=== PATIENT | female | born 1985 | race Caucasian/White ===

== ENCOUNTER 2022-05-04 06:00 | Inpatient (IN) | payer BC ==
[2022-05-04 07:18] VITALS: BMI 33.5
[2022-05-04] MEDS: Lactated Ringer's 1,000 ML IV SCH ×3 (07:31→15:49)
[2022-05-04] MEDS ORDERED: Ondansetron PF 4 MG/2 ML Vial IVP PRN ×3 (07:37→23:07)
[2022-05-04] MEDS ORDERED: NS w/ Oxytocin 30 units 500 ML IV SCH ×3 (07:37→23:07)
[2022-05-04] MEDS ORDERED: hydrALAZINE 20 MG/ML VIAL SLOW IVP PRN ×2 (07:37→23:07)
[2022-05-04] MEDS ORDERED: Promethazine HCl 25 MG/ML VIAL IM PRN ×2 (07:37→12:43)
[2022-05-04] MEDS ORDERED: Butorphanol Tartrate 1 MG/ML VIAL SLOW IVP PRN (07:37)
[2022-05-04] MEDS ORDERED: Lidocaine 1% (PF) 30 ML VIAL SC PRN (07:37)
[2022-05-04] MEDS ORDERED: HYDROcodone/Acetaminophen 5/325 mg Tablet PO PRN ×4 (07:37→23:07)
[2022-05-04] MEDS ORDERED: Ibuprofen 800 MG TAB PO PRN (07:37)
[2022-05-04] MEDS ORDERED: NS w/ Oxytocin 30 units 500 ML ONE (07:48)
[2022-05-04] MEDS ORDERED: Bupivacaine/Epinephrine 0.25% 30 ML VIAL ONE (08:00)
[2022-05-04 08:24] LABS: Hemoglobin 11.3 g/dL (12.0-15.5); Mean Corpuscular HGB CONC 34.6 g/dL (32.0-36.0); Mean Corpuscular Hemoglobin 31.3 pg (27.0-33.0); Mean Corpuscular Volume 90.6 fl (81.6-98.3); Mean Platelet Volume 10.8 fl (7.4-10.4); Platelet Count 247 10x3/uL (150-450); RBC Distribution Width 13.8 % (11.5-14.5); Red Blood Cell (RBC) Count 3.61 10x6/uL (3.90-5.03); White Blood Cell (WBC) Count 13.4 10x3/uL (3.5-10.5)
[2022-05-04 08:52] LABS: HBSAg Index 0.13 S/CO (0-0.99); Hep B Surf Ag Non-Reactive S/CO (NonReactive)
[2022-05-04 08:53] LABS: Syphilis Antibody Nonreactive (Nonreactive); Syphilis Antibody Index 0.03 S/CO (<1.00 Non-Reactive)
[2022-05-04 09:16] LABS: SARS-CoV-2 NAA Rapid Test Not Detected (NotDetected)
[2022-05-04] MEDS ORDERED: Fentanyl 2 mcg/Bup 0.1% Cadd 100 ML ONE (11:37)
[2022-05-04] MEDS ORDERED: ePHEDrine Sulfate 50 MG/10 ML VIAL SLOW IVP PRN (12:43)
[2022-05-04] MEDS ORDERED: diphenhydrAMINE 50 MG/ML VIAL IVP PRN (12:43)
[2022-05-04] MEDS ORDERED: Moisturizing Cream (Eucerin) 113 GM JAR TOP PRN (12:43)
[2022-05-04] MEDS ORDERED: Lactated Ringer's 500 ML IV PRN (12:43)
[2022-05-04] MEDS ORDERED: Acetaminophen 325 MG TAB PO PRN (12:43)
[2022-05-04] MEDS ORDERED: Naloxone HCl 0.4 mg/ml Vial IVP PRN ×2 (12:43)
[2022-05-04] MEDS ORDERED: Communication Order-Pharmacy FS SCH (12:45)
[2022-05-04] MEDS ORDERED: Fentanyl 2 mcg/Bupivacaine 0.1% Cassette 100 ML EPIDURAL SCH (12:45)
[2022-05-04] MEDS ORDERED: Bisacodyl 10 MG SUPP PR PRN (23:07)
[2022-05-04] MEDS ORDERED: diphenhydrAMINE 25 MG CAP PO PRN (23:07)
[2022-05-04] MEDS ORDERED: Preparation H Ointment 28 GM TUBE PR PRN (23:07)
[2022-05-04] MEDS ORDERED: Lanolin Ointment 7 GM TUBE TOP PRN (23:07)
[2022-05-04] MEDS ORDERED: Milk Of Magnesia 30 ML UDCUP PO PRN (23:07)
[2022-05-04] MEDS ORDERED: Benzocaine-Menthol 82.5 ML CAN TOP PRN (23:07)
[2022-05-04] MEDS ORDERED: Boostrix 0.5 ML (Tdap) VIAL (>/=7 yrs of age) IM ONE (23:07)
[2022-05-04] MEDS: Ibuprofen 800 MG TAB PO SCH (23:14)
[2022-05-04] MEDS ORDERED: Docusate 100 MG CAP PO SCH (23:15)
[2022-05-05] MEDS: Ferrous Sulfate 325 MG TAB PO SCH ×2 (08:16→16:03)
[2022-05-05] MEDS: Ibuprofen 800 MG TAB PO SCH ×3 (08:19→23:42)
[2022-05-05] MEDS: Prenatal Vitamin 1 TAB PO SCH (08:19)
[2022-05-05] MEDS: Docusate 100 MG CAP PO SCH ×2 (08:19→21:07)
[2022-05-06] MEDS: Docusate 100 MG CAP PO SCH (08:05)
[2022-05-06] MEDS: Prenatal Vitamin 1 TAB PO SCH (08:05)
[2022-05-06] MEDS: Ibuprofen 800 MG TAB PO SCH (08:05)
[2022-05-06] MEDS: Ferrous Sulfate 325 MG TAB PO SCH (08:06)
[2022-05-06 09:15] VITALS: BP 121/68; TEMP 97.9
== END 2022-05-06 11:20 | disposition home or self-care (01) | DRG 807 ==
LOC: CSHLD 06:26 → CSHPP 22:50
PROVIDERS: ADMIT Obstetrics & Gynecology; ATTEND Obstetrics & Gynecology
PROC: 10E0XZZ Delivery of Products of Conception, External Approach (ICD-10-PCS; principal; 2022-05-04)
PROC: 0KQM0ZZ Repair Perineum Muscle, Open Approach (ICD-10-PCS; 2022-05-04)
PROC: 3E0334Z Introduction of Serum, Toxoid and Vaccine into Peripheral Vein, Percutaneous Approach (ICD-10-PCS; 2022-05-05)
PROC: 10907ZC Drainage of Amniotic Fluid, Therapeutic from Products of Conception, Via Natural or Artificial Opening (ICD-10-PCS; 2022-05-05)
PROC: 3E033VJ Introduction of Other Hormone into Peripheral Vein, Percutaneous Approach (ICD-10-PCS; 2022-05-05)
DX: O99.52 Diseases of the respiratory system complicating childbirth (principal); Z37.0 Single live birth; O99.344 Other mental disorders complicating childbirth; O70.1 Second degree perineal laceration during delivery; O69.81X0 Labor and delivery complicated by cord around neck, without compression, not applicable or unspecified; Z3A.40 40 weeks gestation of pregnancy; Z20.822 Contact with and (suspected) exposure to COVID-19; O26.893 Other specified pregnancy related conditions, third trimester; Z67.11 Type A blood, Rh negative; J45.909 Unspecified asthma, uncomplicated; F41.9 Anxiety disorder, unspecified; O76 Abnormality in fetal heart rate and rhythm complicating labor and delivery
CPT/HCPCS: 36415; 51702; 85027; 85461; 86780; 86850; 86870; 86900; 86901; 87340; 90384; 96372; J1200; J2590; J7120; U0002

== ENCOUNTER 2024-03-20 06:07 | Inpatient (IN) | payer BC ==
[2024-03-20] MEDS ORDERED: Lidocaine 1% (PF) 30 ML VIAL SC PRN (07:12)
[2024-03-20] MEDS ORDERED: Promethazine HCl 25 MG/ML VIAL IM PRN ×2 (07:12→07:54)
[2024-03-20] MEDS ORDERED: fentaNYL 50 mcg/mL 1 mL Vial SLOW IVP PRN (07:12)
[2024-03-20] MEDS ORDERED: Oxytocin 30 units/NS 500 ML 500 ML IV SCH ×2 (07:12→16:51)
[2024-03-20] MEDS ORDERED: HYDROcodone/Acetaminophen 5/325 mg Tablet PO PRN ×3 (07:12→16:51)
[2024-03-20] MEDS ORDERED: Ibuprofen 800 MG TAB PO PRN (07:12)
[2024-03-20] MEDS ORDERED: Ondansetron PF 4 MG/2 ML Vial IVP PRN ×3 (07:12→16:51)
[2024-03-20] MEDS ORDERED: hydrALAZINE 20 MG/ML VIAL SLOW IVP PRN ×2 (07:12→16:51)
[2024-03-20 07:25] LABS: Hematocrit 33.7 % (34.9-44.5); Hemoglobin 11.3 g/dL (12.0-15.5); Mean Corpuscular HGB CONC 33.5 g/dL (32.0-36.0); Mean Corpuscular Hemoglobin 30.2 pg (27.0-33.0); Mean Corpuscular Volume 90.1 fL (81.6-98.3); Mean Platelet Volume 10.2 fL (7.4-10.4); Platelet Count 203 10x3/uL (150-450); RBC Distribution Width 13.2 % (11.5-14.5); Red Blood Cell (RBC) Count 3.74 10x6/uL (3.90-5.03); White Blood Cell (WBC) Count 11.4 10x3/uL (3.5-10.5)
[2024-03-20] MEDS: Lactated Ringer's 1,000 ML IV SCH (07:30)
[2024-03-20] MEDS: Oxytocin 30 units/NS 500 ML 500 ML IV SCH (07:30)
[2024-03-20 07:51] LABS: HBsAg Index 0.24 S/CO (0-0.99); Hep B Surf Ag - L&D Non-Reactive S/CO (NonReactive)
[2024-03-20 07:52] LABS: Syphilis Antibody Nonreactive (Nonreactive); Syphilis Antibody Index 0.04 S/CO (<1.00 Non-Reactive)
[2024-03-20] MEDS ORDERED: Lactated Ringer's 500 ML IV PRN (07:54)
[2024-03-20] MEDS ORDERED: ePHEDrine Sulfate 50 MG/10 ML VIAL SLOW IVP PRN (07:54)
[2024-03-20] MEDS ORDERED: Moisturizing Cream (Eucerin) 113 GM JAR TOP PRN (07:54)
[2024-03-20] MEDS ORDERED: Acetaminophen 325 MG TAB PO PRN (07:54)
[2024-03-20] MEDS ORDERED: Naloxone HCl 0.4 mg/ml Vial IVP PRN ×2 (07:54)
[2024-03-20] MEDS ORDERED: diphenhydrAMINE 50 MG/ML VIAL IVP PRN (07:54)
[2024-03-20] MEDS ORDERED: ePHEDrine Sulfate 50 MG/10 ML VIAL ONE (08:00)
[2024-03-20] MEDS ORDERED: fentaNYL 2 mcg/Ropivacaine 0.2% Epidural 100 ML CADD EPIDURAL SCH (08:00)
[2024-03-20] MEDS ORDERED: Bupivacaine/Epinephrine 0.25% 30 ML VIAL ONE (08:00)
[2024-03-20] MEDS ORDERED: Communication Order-Pharmacy FS SCH (08:00)
[2024-03-20] MEDS: fentaNYL/Ropivacaine Epidural 100 ML ONE (08:15)
[2024-03-20] MEDS ORDERED: Boostrix 0.5 ML (Tdap) VIAL (>/=7 yrs of age) IM ONE (16:51)
[2024-03-20] MEDS ORDERED: Bisacodyl 10 MG SUPP PR PRN (16:51)
[2024-03-20] MEDS ORDERED: diphenhydrAMINE 25 MG CAP PO PRN (16:51)
[2024-03-20] MEDS ORDERED: Milk Of Magnesia 30 ML UDCUP PO PRN (16:51)
[2024-03-20] MEDS ORDERED: Benzocaine-Menthol 82.5 ML CAN TOP PRN (16:51)
[2024-03-20] MEDS ORDERED: Preparation H Ointment 28 GM TUBE PR PRN (16:51)
[2024-03-20] MEDS ORDERED: Lanolin Ointment 7 GM TUBE TOP PRN (16:51)
[2024-03-20] MEDS: Ferrous Sulfate 325 MG TAB PO SCH (19:29)
[2024-03-20] MEDS: Ibuprofen 800 MG TAB PO SCH (21:06)
[2024-03-20] MEDS: Docusate 100 MG CAP PO SCH (21:06)
[2024-03-21] MEDS: HYDROcodone/Acetaminophen 5/325 mg Tablet PO PRN (08:40)
[2024-03-21] MEDS: Prenatal Vitamin 1 TAB PO SCH (08:40)
[2024-03-21 16:15] VITALS: BP 119/71; TEMP 98.6
== END 2024-03-21 17:45 | disposition home or self-care (01) | DRG 807 ==
LOC: CSHLD 06:07 → CSHPP 18:44
PROVIDERS: ADMIT Obstetrics & Gynecology; ATTEND Obstetrics & Gynecology
PROC: 10E0XZZ Delivery of Products of Conception, External Approach (ICD-10-PCS; principal; 2024-03-20)
PROC: 0HQ9XZZ Repair Perineum Skin, External Approach (ICD-10-PCS; 2024-03-20)
DX: O26.893 Other specified pregnancy related conditions, third trimester (principal); Z37.0 Single live birth; Z67.11 Type A blood, Rh negative; Z3A.39 39 weeks gestation of pregnancy; O70.0 First degree perineal laceration during delivery; O66.0 Obstructed labor due to shoulder dystocia
CPT/HCPCS: 36415; 85027; 85461; 86780; 86850; 86870; 86900; 86901; 87340; 90384; 96372; J2590; J7120